=== PATIENT | female | born 1995 | race Caucasian/White ===

== ENCOUNTER 2017-04-02 15:21 | Observation (INO) | payer MEDICAID ==
[2017-04-02 17:41] LABS: Bilirubin NEGATIVE (NEGATIVE); Blood NEGATIVE Ery/ul (0-5); COMPLETE URINE MICROSCOPIC? YES; Collection Type CLEAN CATCH; Glucose NEGATIVE (NEGATIVE); Leukocyte Esterase 1+ (NEGATIVE)
[2017-04-02 17:42] LABS: Bacteria FEW /HPF (NEGATIVE); Epithelial Cells MODERATE /HPF (FEW)
[2017-04-02 17:50] VITALS: PULSE 109
== END 2017-04-02 18:30 | disposition home or self-care (01) ==
LOC: OB 15:21
PROVIDERS: ADMIT Family Medicine; ATTEND Family Medicine
DX: Z34.03 Encounter for supervision of normal first pregnancy, third trimester (principal)
CPT/HCPCS: 59025; 80307; 81000; G0378

== ENCOUNTER 2017-04-16 13:42 | Observation (INO) | payer MEDICAID ==
[2017-04-16 14:30] VITALS: BP 123/80; PULSE 114
--- NOTE | 2017-04-16 14:52 | XRAY ---
Indication: Increased heart rate. Ultrasound biophysical profile study was performed. Comparison: None There is a single viable intrauterine with a heart rate 155 BPM. Four-quadrant SENTHIL is 13.4 cm. Largest amniotic pocket measures 4.6 cm. 2 points given for breathing, movements, tone, and qualitative amniotic fluid volume. Impression: Total biophysical profile score is 8 out of 8.
== END 2017-04-16 16:00 | disposition home or self-care (01) ==
LOC: OB 13:42
PROVIDERS: ADMIT Family Medicine; ATTEND Family Medicine
DX: Z34.03 Encounter for supervision of normal first pregnancy, third trimester (principal)
CPT/HCPCS: 59025; 76818; G0378

== ENCOUNTER 2017-04-18 11:34 | Observation (INO) | payer MEDICAID ==
[2017-04-18 12:11] VITALS: BP 126/84; PULSE 112; O2SAT 100
== END 2017-04-18 14:00 | disposition home or self-care (01) ==
LOC: OB 11:34
PROVIDERS: ADMIT Family Medicine; ATTEND Family Medicine
DX: Z34.03 Encounter for supervision of normal first pregnancy, third trimester (principal)
CPT/HCPCS: 59025; G0378

== ENCOUNTER 2017-05-07 04:38 | Observation (INO) | payer MEDICAID ==
[2017-05-07] MEDS ORDERED: Lactated Ringers 1,000 ML IV ONE (07:16)
[2017-05-07] MEDS ORDERED: OB EPIDURAL NAROPIN/SUFENTANIL IN NACL EPIDURAL PRN (07:16)
[2017-05-07] MEDS ORDERED: Ephedrine Sulfate 50 MG/ML IV PRN (07:16)
[2017-05-07 07:17] LABS: BASOPHIL % 0.1 % (0.0-0.4); Eosinophil % 1.1 % (0.00-5.0); Granulocytes % 55.7 % (36.0-66.0); Lymphocytes % 37.8 % (24.0-44.0); Mean Cell Volume 83.8 fl (78-100); Mean Platelet Volume 11.2 fl (6-9.5); Monocytes % 5.3 % (0.0-12.0); Platelet Count 242 K/mm3 (150-450); Red Blood Count 4.51 M/mm3 (4.1-5.4); White Blood Count 10.5 K/mm3 (4.0-10.5)
[2017-05-07] MEDS ORDERED: Lactated Ringers 1,000 ML IV SCH (07:30)
[2017-05-07] MEDS ORDERED: Zofran 4 MG/2 ML VIAL IV PRN (08:00)
[2017-05-07] MEDS ORDERED: PITOCIN 30 UNITS/ LR 500 ML 500 ML IV SCH (08:00)
[2017-05-07] MEDS ORDERED: XYLOCAINE 1% HCL 20 ML MDV IJ PRN (08:00)
[2017-05-07] MEDS ORDERED: TYLENOL EXTRA STRENGTH 500 MG PO PRN (08:00)
[2017-05-07] MEDS ORDERED: BRETHINE 1 MG/ML SQ PRN (10:15)
[2017-05-07] MEDS ORDERED: Cervidil 10 MG VAG SCH (22:00)
[2017-05-08 07:56] VITALS: BP 122/80; PULSE 70
--- NOTE | 2017-05-08 20:53 | XRAY ---
Exam: OB ultrasound Limited from 05/08/2017. Comparison: OB ultrasound Limited from 04/24/2017. Indication: Amniotic fluid index only. Findings: 4 perpendicular measurements to calculate the amniotic fluid index within each quadrant total 12.4 cm which is within normal limits for this stage of . cardiac activity was identified with a heart rate of 145 bpm. Impression: 1. Current amniotic fluid index measures 12.4 cm which is within normal limits for this near term . Prior SENTHIL on 04/24/2017 measured 14.6 cm.
== END 2017-05-08 09:30 | disposition home or self-care (01) ==
LOC: OB 06:01
PROVIDERS: ADMIT Family Medicine; ATTEND Family Medicine
DX: O61.0 Failed medical induction of labor (principal); Z3A.40 40 weeks gestation of pregnancy
CPT/HCPCS: 36415; 76815; 80307; 85025; G0378; J2590; A9270-GY

== ENCOUNTER 2017-05-10 15:50 | Observation (INO) | payer MEDICAID ==
[2017-05-10 21:34] VITALS: BP 140/94; PULSE 97
== END 2017-05-10 21:00 | disposition home or self-care (01) ==
LOC: UNDOADMOB 15:50 → OB 15:50 → MED SURG 15:50 → UNDODISOB 21:00
PROVIDERS: ADMIT Family Medicine; ATTEND Family Medicine
DX: Z34.03 Encounter for supervision of normal first pregnancy, third trimester (principal)
CPT/HCPCS: 59025; G0378

== ENCOUNTER 2018-08-25 12:23 | Observation (INO) | payer OTHER ==
[2018-08-25 14:20] VITALS: BP 111/73; PULSE 103
== END 2018-08-25 13:35 | disposition home or self-care (01) ==
LOC: OB 12:23
PROVIDERS: ADMIT Family Medicine; ATTEND Family Medicine
DX: Z34.83 Encounter for supervision of other normal pregnancy, third trimester (principal)
CPT/HCPCS: G0378

== ENCOUNTER 2018-08-26 12:42 | Observation (INO) | payer OTHER ==
[2018-08-26 13:16] VITALS: PULSE 97
[2018-08-26 13:46] VITALS: BP 110/72
== END 2018-08-26 14:30 | disposition home or self-care (01) ==
LOC: OB 12:43
PROVIDERS: ADMIT Family Medicine; ATTEND Family Medicine
DX: Z34.83 Encounter for supervision of other normal pregnancy, third trimester (principal)
CPT/HCPCS: G0378

== ENCOUNTER 2018-09-10 04:14 | Inpatient (IN) | payer OTHER ==
[~2018-09-10 04:14] MED LIST: BICITRA 30 ML CUP PO SCH; Lactated Ringers 1,000 ML IV ONE; Lactated Ringers 1,000 ML IV SCH; Pepcid 20 MG VIAL IV SCH; Reglan 10 MG/2 ML IV SCH
[2018-09-10] MEDS ORDERED: CEFAZOLIN 2 GM-D5W BAG** 2 GM/50 ML ML IV ONE (05:23)
[2018-09-10 05:26] LABS: Hematocrit 38.5 % (35-47); Hemoglobin 13.4 gm/dl (12.0-16.0); Mean Cell Volume 84.2 fl (78-100); Mean Corpuscular Hemoglobin 29.3 pg (26-32); Mean Corpuscular Hgb Concent. 34.8 g/dl (32-36); Mean Platelet Volume 10.2 fl (6-9.5); Platelet Count 272 K/mm3 (150-450); Red Blood Count 4.57 M/mm3 (4.1-5.4); Red Cell Distribution Width 13.8 % (11.5-14.0); White Blood Count 8.7 K/mm3 (4.0-10.5)
[2018-09-10 05:45] LABS: INR 0.91 (0.8-3.0); PROTIME 10.6 SECONDS (9.95-12.35)
[2018-09-10 05:46] LABS: Amphetamine,Urine NEGATIVE (NEGATIVE); Appearance HAZY (CLEAR); Bacteria MODERATE /HPF (NEGATIVE); Barbiturate,Urine NEGATIVE (NEGATIVE); Benzodiazepine,Urine NEGATIVE (NEGATIVE); Bilirubin NEGATIVE (NEGATIVE); Blood NEGATIVE Ery/ul (0-5); Cocaine,Urine NEGATIVE (NEGATIVE); Epithelial Cells MANY /HPF (FEW); Glucose NEGATIVE (NEGATIVE); Ketones NEGATIVE (NEGATIVE); Leukocyte Esterase 1+ (NEGATIVE); Methadone,Urine NEGATIVE (NEGATIVE); Nitrite NEGATIVE (NEGATIVE); Opiate,Urine NEGATIVE (NEGATIVE); PCP,Urine NEGATIVE (NEGATIVE); Protein,Urine Dip NEGATIVE (Negative); Specific Gravity 1.015 (1.005-1.025); THC,Urine NEGATIVE (NEGATIVE); Urobilinogen NORMAL mg/dL (0-1)
[2018-09-10 05:48] LABS: PTT 25.8 SECONDS (25.3-37.0)
[2018-09-10] MEDS ORDERED: CEFAZOLIN 2 GM-D5W BAG** 2 GM/50 ML ML IV SCH (06:00)
[2018-09-10 06:13] LABS: ABO TYPING B; Antibody Screen NEGATIVE (NEGATIVE); RH TYPING POSITIVE
[2018-09-10] MEDS ORDERED: Lactated Ringers 1,000 ML IV ONE ×2 (07:06→07:32)
[2018-09-10] MEDS ORDERED: Narcan 0.4 MG/ML IV PRN (08:00)
[2018-09-10] MEDS ORDERED: CLARITIN 10 MG PO PRN (08:00)
[2018-09-10] MEDS ORDERED: BENADRYL 50 MG/ML IV PRN (08:00)
[2018-09-10] MEDS ORDERED: HOLD NARCOTIC ANALGESICS AND SEDATIVES X24 HR MC PRN (08:00)
[2018-09-10] MEDS ORDERED: DEMEROL 50 MG IV PRN (08:00)
[2018-09-10] MEDS ORDERED: PERCOCET TABLET 5/325MG PO PRN (08:00)
[2018-09-10] MEDS ORDERED: MORPHINE SULFATE 2 MG INJ IV PRN (08:00)
[2018-09-10] MEDS ORDERED: Nubain 10 MG/ML IV PRN (08:00)
--- NOTE | 2018-09-10 08:54 | OP ---
SURGERY DATE/TIME: 09/10/2018 0701 PREOPERATIVE DIAGNOSES: 1) History of prior section. 2) Term intrauterine . 3) Desires permanent sterilization. POSTOPERATIVE DIAGNOSES: 1) History of prior section. 2) Term intrauterine . 3) Desires permanent sterilization. PROCEDURES: 1) Repeat low transverse section. 2) Bilateral tubal ligation. SURGEON: Alex Damon M.D. ESTIMATED BLOOD LOSS: 300 cc. IV FLUIDS: 2200 ml of crystalloid. URINE OUTPUT: 400 cc of clear straw-colored urine. ANESTHESIA: Spinal by Domenic Perez CRNA. SPECIMENS: Bilateral fallopian tube segments. Prior to the procedure I discussed risks, benefits and alternatives including risk of bleeding requiring blood transfusion, damage to surrounding structures and risk of infection with repeat section. I also discussed the permanent nature of tubal ligation again with the patient and reviewed failure rate of 1 in 300. She elected to proceed today and had previously signed a consent form in the office on 06/04/2018 which there is a copy on the chart and signed today. DESCRIPTION OF PROCEDURE: She was taken to the OR and underwent spinal anesthesia, prepped and draped in the usual sterile fashion. After adequate level of anesthesia was assessed, a low transverse skin incision was made by knife through the prior area of scar and carried down to the subcutaneous fat to the level of the fascia. The fascia was nicked on both sides of the midline and extended in horizontal fashion using curved Bowers scissors. The superior edge of the fascia was grasped with Seun clamps and the underlying rectus muscles were dissected free. The same was repeated inferiorly. The peritoneal cavity was opened bluntly and extended in horizontal fashion. Bladder flap was then created and reflected over the lower uterine segment. A horizontal uterine incision was made by knife and carried down to the level of the amniotic membranes which were carefully artificially ruptured. A viable female was delivered from the vertex presentation. The cord was clamped and cut and Dr. Gaspar robed/scrubbed at that point to assess the baby. Placenta was manually extracted from the uterus. The uterus was exteriorized. The uterine cavity was sponge curetted clean with lap sponge and then the uterine incision was closed with #1 chromic in a running locked fashion. Good closure and good hemostasis were achieved. Next, the left fallopian tube was identified and carried down to the fimbrial edge to verify, grasped with a Nilesh and electrocautery used to make a window in the mesoappendix. The proximal and distal tube segments were then ligated with 0 chromic tie and the interceding tube segment was dissected free with Metzenbaum scissors. The free edge of the tube was cauterized with electrocautery. The same was repeated on the right. Both tube segments were sent for pathology. The posterior cul-de-sac was wiped free of blood and clot. The uterus was returned to the peritoneal cavity. Lateral gutters were wiped free of blood and clot and the uterine incision was again inspected and noted to have good closure and good hemostasis with no complications. Next, the fascia was closed with 0 Vicryl in a running fashion. Good closure and good hemostasis were achieved. The subcutaneous fat was irrigated with warm, sterile saline and finally the skin layer was closed with 4-0 undyed Vicryl in running subcuticular fashion. Steri-Strips and occlusive dressing were placed over the incision. The patient was transferred to the recovery room in good condition.
[2018-09-10] MEDS ORDERED: Dulcolax 10 MG SUPP PR PRN (09:00)
[2018-09-10] MEDS ORDERED: Mylicon 80MG PO PRN (09:00)
[2018-09-10] MEDS ORDERED: LANSINOH 40 GM TOP PRN (09:00)
[2018-09-10] MEDS ORDERED: MOTRIN 400 MG PO PRN (09:00)
[2018-09-10] MEDS ORDERED: TYLENOL EXTRA STRENGTH 500 MG PO PRN (09:00)
[2018-09-10] MEDS ORDERED: Anucort-HC SUPPOSITORY PR PRN (09:00)
[2018-09-10] MEDS ORDERED: CORTISONE 1% CREAM TP PRN (09:00)
[2018-09-10] MEDS: Dextrose 5%-Lr IV Solution 1000 ML 1,000 ML IV SCH ×2 (09:56→18:06)
[2018-09-10] MEDS: Zofran 4 MG/2 ML VIAL IV PRN ×3 (09:59→17:31)
[2018-09-10 11:25] LABS: Appearance CLEAR (CLEAR); Bacteria FEW /HPF (NEGATIVE); Bilirubin NEGATIVE (NEGATIVE); Blood NEGATIVE Ery/ul (0-5); Epithelial Cells FEW /HPF (FEW); Glucose NEGATIVE (NEGATIVE); Ketones NEGATIVE (NEGATIVE); Leukocyte Esterase TRACE (NEGATIVE); Nitrite NEGATIVE (NEGATIVE); Protein,Urine Dip NEGATIVE (Negative); Urobilinogen NORMAL mg/dL (0-1); WBC 0-2 /HPF (0-5)
[2018-09-10] MEDS ORDERED: TORAdol 30 mg Injection IJ ONE (12:49)
[2018-09-10] MEDS ORDERED: PHENYLEPHRINE HCL IJ ONE (12:49)
[2018-09-10] MEDS ORDERED: Marcaine Mpf 0.5% Vial 30 Ml IJ ONE (12:49)
[2018-09-10] MEDS ORDERED: Pitocin 10 UNITS/ML IV ONE (12:49)
[2018-09-10] MEDS ORDERED: Astramorph-Pf 5 MG/10 ML IJ ONE (14:15)
[2018-09-10] MEDS: Colace 100 MG PO SCH ×2 (14:38→22:30)
[2018-09-10] MEDS: FERREX 150 PO SCH (14:39)
[2018-09-11 05:52] LABS: BASOPHIL % 0.1 % (0.0-0.4); Basophil (Absolute #) 0.01 (0-0.4); Eosinophil % 1.1 % (0.00-5.0); Eosinophil (Absolute #) 0.11 (0-0.5); Granulocyte Absolute (ANC) 6.44 (1.4-6.9); Granulocytes % 64.5 % (36.0-66.0); Hematocrit 34.6 % (35-47); Hemoglobin 11.8 gm/dl (12.0-16.0); Lymphocyte (Absolute #) 2.88 (1.0-4.6); Lymphocytes % 28.9 % (24.0-44.0); Mean Cell Volume 86.7 fl (78-100); Mean Corpuscular Hgb Concent. 34.1 g/dl (32-36); Mean Platelet Volume 10.3 fl (6-9.5); Monocyte (Absolute #) 0.54 (0.0-1.3); Monocytes % 5.4 % (0.0-12.0); Platelet Count 236 K/mm3 (150-450); Red Blood Count 3.99 M/mm3 (4.1-5.4)
[2018-09-11 05:55] LABS: Mean Corpuscular Hemoglobin 29.5 pg (26-32)
[2018-09-11] MEDS ORDERED: Phenergan 25 MG INJ IM PRN (08:00)
[2018-09-11] MEDS ORDERED: DEMEROL 50 MG IV PRN (08:00)
[2018-09-11] MEDS ORDERED: NORCO 5/325 MG PO PRN (08:00)
[2018-09-11] MEDS: Colace 100 MG PO SCH (09:14)
[2018-09-11] MEDS: FERREX 150 PO SCH ×2 (09:14→10:18)
[2018-09-11] MEDS ORDERED: THERAGRAN MULTIVITAMIN PO SCH (10:00)
[2018-09-11] MEDS ORDERED: MULTIVITAMIN LIQUID PO SCH (11:00)
[2018-09-11] MEDS ORDERED: Ferrous Sulfate (IRON) 220 MG/5 ML PO SCH (11:00)
[2018-09-11] MEDS ORDERED: TYLENOL SUSPENSION 160 MG/5 ML PO PRN (11:11)
[2018-09-11] MEDS: HYDROCODONE-ACETAMIN 2.5-108/5 ML SOLUTION PO PRN ×2 (13:43→20:04)
[2018-09-11] MEDS: Motrin 100 MG/5 ML PO PRN ×2 (16:44→22:46)
[2018-09-11] MEDS ORDERED: COLACE Liquid 50 MG/5 ML PO SCH (22:00)
[2018-09-12] MEDS: HYDROCODONE-ACETAMIN 2.5-108/5 ML SOLUTION PO PRN ×2 (03:02→08:41)
[2018-09-12] MEDS: Motrin 100 MG/5 ML PO PRN (05:45)
--- NOTE | 2018-09-12 07:02 | PCM.DS ---
Discharge Summary Date of Admission: 09/10/18 04:14 Admitting Physician: MARIVEL PLAZA Consults: Consults on Case 09/10/18 04:00 Notify Anesthesia Provider ROUTINE Notify Physician OF ADMISSION Primary Care Provider: MARIVEL PLAZA Allergies Allergies No Known Drug Allergies Allergy (Verified 08/26/18 12:56) Hospital Summary - Hospital Course Hospital Course: Pt came in as 22 yo at 39w 1d for repeat . She had some late to care at 21 weeks; date by 21w u/s. She had a history of hyperthyroidism, on PTU , with her first , but apparently she didn't tolerate the PTU well and did not comply with endocrinology appointment or T3/T4 testing during this . Her was uneventful. She did not have much pain until yesterday; took motrin and norco overnight (pt tolerates liquid medicine better than pills). Her bleeding is moderate. Up and out of bed without difficulty. Bottle feeding. Will be discharged to home today with baby. - Vitals & Intake/Output Vital Signs: Vital Signs Temperature 97.3 F 09/12/18 03:00 Pulse Rate 76 09/12/18 03:00 Respiratory Rate 20 09/12/18 03:00 Blood Pressure 124/84 09/12/18 03:00 O2 Sat by Pulse Oximetry 97 09/11/18 05:00 Intake & Output: Intake & Output 09/09/18 09/10/18 09/11/18 09/12/18 11:59 11:59 11:59 11:59 Intake Total 2000 Output Total 2600 Balance -600 Weight 101.151 kg - Lab Result Diagrams: 09/11/18 05:38 Lab Results-Last 24 Hrs: Lab Results-Last 24 Hours 09/10/18 Range/Units 05:00 T3 (LUZ) 133 (80-200) ng/dL Micro Results-Entire Visit: Microbiology 09/10/18 07:16 Urine Culture - Preliminary Urine, Void NO GROWTH TO DATE - Procedures and Test Procedures and Tests throughout Hospitalization: Therapy Orders & Screens 09/10/18 08:02 Standby Routine Comment: Diagnosis: Repeat Section with Bilateral Tubal Ligation Discharge Exam General Appearance: no apparent distress, alert Neurologic Exam: oriented x 3, cooperative Skin Exam: normal color, warm, dry, No rash Eye Exam: eyes nml inspection Ears, Nose, Throat Exam: moist mucous membranes Neck Exam: normal inspection Respiratory Exam: normal breath sounds, lungs clear, No crackles/rales, No rhonchi, No wheezing Cardiovascular Exam: regular rate/rhythm, normal heart sounds, No murmur Gastrointestinal/Abdomen Exam: soft, normal bowel sounds, other (fundus firm under umbilicus. Wound c/d/i), No tenderness, No distention, No mass, No guarding, No rebound Extremity Exam: normal inspection, swelling (trace LE edema bilat) Final Diagnosis/Problem List - Final Discharge Diagnosis/Problem (1) Postcesarean section Current Visit: No Status: Acute Assessment & Plan: Doing very well. Hgb was 11.8 the day after her delivery, so no iron prescribed at home. BP have been uniformly great. F/u with Dr. Daomn in 1 week. - Discharge Disposition: Home, Self-Care Condition: Good Prescriptions: New Hydrocodone/Acetaminophen [Hydrocodone-Acetamin 2.5-108/5 ml Solution] 10 ml PO Q4HPRN PRN #1 bottle MDD 60 mL PRN Reason: Severe Pain Ibuprofen 100 mg/5 ml [Motrin 100 MG/5 ML] 800 mg PO Q6H PRN PRN #1 bottle MDD 2400 mg PRN Reason: Moderate Pain Continue Vits W-Ca,Fe,FA(<1Mg) [] 1 tablet PO DAILY Cannabidiol (Cbd) Extract [Epidiolex] 15 mg PO BID PRN Follow up with: MARIVEL PLAZA [Primary Care Provider] - 1 Week
[2018-09-12 09:22] VITALS: BP 104/69; PULSE 90; O2SAT 98
== END 2018-09-12 10:05 | disposition home or self-care (01) | DRG 833 ==
LOC: OB 04:14
PROVIDERS: ADMIT Family Medicine; ATTEND Family Medicine
DX: O34.211 Maternal care for low transverse scar from previous cesarean delivery (principal); O99.283 Endocrine, nutritional and metabolic diseases complicating pregnancy, third trimester; Z3A.39 39 weeks gestation of pregnancy; Z37.0 Single live birth; Z30.2 Encounter for sterilization
CPT/HCPCS: 36415; 62322; 64488; 76937; 76942; 80307; 81001; 81003; 84436; 84480; 85025; 85027; 85610; 85730; 86850; 86900; 86901; 87086; 94799; J0690; J1885; J2274; J2370; J2405; J2590; L0625; A9270-GY

== ENCOUNTER 2019-09-06 21:16 | Emergency (ER) | payer OTHER ==
[2019-09-06] MEDS ORDERED: TORAdol 30 mg Injection IM ONE (22:03)
[2019-09-06 22:05] LABS: Appearance CLEAR (CLEAR); Bilirubin NEGATIVE (NEGATIVE); Blood SMALL Ery/ul (0-5); Glucose NEGATIVE (NEGATIVE); Ketones NEGATIVE (NEGATIVE); Leukocyte Esterase NEGATIVE (NEGATIVE); Mucus SLIGHT /HPF (NEGATIVE); Nitrite NEGATIVE (NEGATIVE); Protein,Urine Dip NEGATIVE (Negative); Specific Gravity 1.014 (1.005-1.025); Urobilinogen NEGATIVE mg/dL (0-1)
[2019-09-06] MEDS ORDERED: TORAdol 30 mg Injection ONE (22:11)
--- NOTE | 2019-09-06 22:22 | ERPHSYRPT ---
- History of Present Illness Source: patient Exam Limitations: no limitations Patient Subjective Stated Complaint: pt c/o cramps from her period, radiating to her back, abd pain, all worsening. Triage Nursing Assessment: pt c/o menstrual cramps that are worse than usual. Abd pain, radiating to back, nausea, vomited x2. Physician History: abd pain, back pain, menstrual related, NV, 1-2 days. No fever. Timing/Duration: day(s) (2) Activites at Onset: none Quality: sharpness, stabbing Onset Location: RLQ, LLQ, suprapubic Pain Radiation: back Severity of Pain-Max: moderate Severity of Pain-Current: moderate Prior abdominal problems: other (PMS) Sexual intercourse history: non-contributory Modifying Factors: Improves With: nothing Associated Symptoms: nausea, vomiting Allergies/Adverse Reactions: No Known Drug Allergies Allergy (Verified 09/06/19 21:43) Home Medications: Divalproex Sodium [Depakote] 125 mg PO BID 09/06/19 [History] Hx Tetanus, Diphtheria Vaccination/Date Given: Yes Hx Influenza Vaccination/Date Given: No Hx Pneumococcal Vaccination/Date Given: No - Review of Systems Constitutional: No Fever, No Chills Eyes: No Symptoms Ears, Nose, & Throat: No Symptoms Respiratory: No Cough, No Dyspnea Cardiac: No Chest Pain, No Edema, No Syncope Abdominal/Gastrointestinal: Abdominal Pain, Nausea, Vomiting, No Diarrhea Genitourinary Symptoms: No Dysuria Musculoskeletal: Back Pain, No Neck Pain Skin: No Rash Neurological: No Dizziness, No Focal Weakness, No Sensory Changes Psychological: No Symptoms Endocrine: No Symptoms All Other Systems: Reviewed and Negative - Past Medical History Pertinent Past Medical History: Yes Neurological History: No Pertinent History ENT History: No Pertinent History Cardiac History: No Pertinent History Respiratory History: No Pertinent History Endocrine Medical History: Other Musculoskeletal History: No Pertinent History GI Medical History: No Pertinent History History: No Pertinent History Psycho-Social History: No Pertinent History Female Reproductive Disorders: No Pertinent History Other Medical History: sickle cell trait. graves disease - Past Surgical History Past Surgical History: Yes Neuro Surgical History: No Pertinent History Cardiac: No Pertinent History Respiratory: No Pertinent History Gastrointestinal: No Pertinent History Genitourinary: No Pertinent History Musculoskeletal: No Pertinent History Female Surgical History: Section, Tubal Ligation Other Surgical History: x2 - Social History Smoking Status: Current every day smoker How long have you smoked: 10 yrs Exposure to second hand smoke: Yes Drug Use: marijuana Patient Lives Alone: No - Female History Hx Last Menstrual Period: 09/05/19 Hx Now: No - Nursing Vital Signs Nursing Vital Signs: Initial Vital Signs Temperature 98.4 F 09/06/19 21:33 Pulse Rate 107 H 09/06/19 21:33 Respiratory Rate 18 09/06/19 21:33 Blood Pressure 133/97 09/06/19 21:33 O2 Sat by Pulse Oximetry 99 09/06/19 21:33 Pain Scale Pain Intensity 7 - Physical Exam General Appearance: no apparent distress, alert Eye Exam: PERRL/EOMI, eyes nml inspection Ears, Nose, Throat Exam: normal ENT inspection, TMs normal, pharynx normal, moist mucous membranes Neck Exam: normal inspection, non-tender, supple, full range of motion Respiratory Exam: normal breath sounds, lungs clear, No respiratory distress Cardiovascular Exam: regular rate/rhythm, normal heart sounds, normal peripheral pulses Gastrointestinal/Abdomen Exam: soft, tenderness, No mass, No guarding, No rebound Pelvic Exam: not done Rectal Exam: deferred Back Exam: normal inspection, normal range of motion, muscle spasm, No CVA tenderness, No vertebral tenderness Extremity Exam: normal inspection, normal range of motion, pelvis stable Neurologic Exam: alert, oriented x 3, cooperative, blood bank specialist II-XII nml as tested, normal mood/affect, sensation nml, No motor deficits Skin Exam: normal color, warm, dry Lymphatic Exam: No adenopathy SpO2: 99 - Course Nursing assessment & vital signs reviewed: Yes Ordered Tests: Active Orders 24 hr Category Date Time Status HCG,QUALITATIVE URINE Stat Lab 09/06/19 21:57 Completed UA W/RFX UR CULTURE Stat Lab 09/06/19 21:57 Completed Medication Summary Discontinued Medications Generic Name Dose Route Start Last Admin Trade Name Freq PRN Reason Stop Dose Admin Ketorolac Tromethamine 60 mg 09/06/19 22:03 Toradol 30 Mg Injection IM 09/06/19 22:04 STAT ONE Ketorolac Tromethamine Confirm 09/06/19 22:11 Toradol 30 Mg Injection Administered 09/06/19 22:12 Dose 60 mg .ROUTE .[place] [facility] Lab/Rad Data: Laboratory Results 09/06/19 09/06/19 Range/Units 21:57 21:57 Urine Color YELLOW (YELLOW) Urine Appearance CLEAR (CLEAR) Urine pH 6.0 (5-6) Ur Specific [place] 1.014 (1.005-1.025) Urine Protein NEGATIVE (Negative) Urine Ketones NEGATIVE (NEGATIVE) Urine Blood SMALL (0-5) Beck/ul Urine Nitrite NEGATIVE (NEGATIVE) Urine Bilirubin NEGATIVE (NEGATIVE) Urine Urobilinogen NEGATIVE (0-1) mg/dL Ur Leukocyte Esterase NEGATIVE (NEGATIVE) Urine WBC (Auto) NONE (0-5) /HPF Urine RBC (Auto) NONE (0-2) /HPF U Epithel Cells (Auto) NONE (FEW) /HPF Urine Bacteria (Auto) NONE (NEGATIVE) /HPF Urine Mucus (Auto) SLIGHT (NEGATIVE) /HPF Urine Culture Reflexed NO (NO) Urine Glucose NEGATIVE (NEGATIVE) mg/dL Urine HCG, Qual NEGATIVE (Negative) - Progress Progress: improved Air Movement: good Progress Note: 09/06/19 22:17 PMS related. Normal pap x last 2 years. No vagina issues. UA neg. toradol IM. Rx Ponstel Advised f/u with DELIVERY DEPARTMENT SUPERVISOR. Blood Culture(s) Obtained: No Antibiotics given: No Counseled pt/family regarding: lab results, diagnosis, need for follow-up - Departure Departure Disposition: Home Clinical Impression: Menstrual cramps Condition: Stable Critical Care Time: No Referrals: MARIVEL PLAZA [Primary Care Provider] - Instructions: Menstrual Cramps (DC) Additional Instructions: Rest. Take meds as prescribed. Try Midol as well. Follow up with DELIVERY DEPARTMENT SUPERVISOR laura. Return to ER if worse. Forms: Work/School Release Form Prescriptions: Mefenamic Acid 250 mg PO Q6H PRN PRN 3 Days #10 capsule PRN Reason: Pain
[2019-09-06 23:02] VITALS: BP 123/89; PULSE 96; O2SAT 98
== END 2019-09-06 23:02 | disposition home or self-care (01) ==
LOC: ED 21:16
DX: N94.6 Dysmenorrhea, unspecified (principal)
CPT/HCPCS: 81001; 84703; 96372; 99284; J1885

== ENCOUNTER 2020-06-09 12:06 | Emergency (ER) | payer OTHER ==
[2020-06-09] MEDS ORDERED: CLINDAMYCIN-D5W 900 MG/50 ML*** 900 MG/50 ML BAG IV STA (12:24)
[2020-06-09] MEDS ORDERED: Zofran 4 MG/2 ML VIAL IV ONE (12:24)
[2020-06-09] MEDS ORDERED: MORPHINE SULFATE 10 MG/ML IV ONE (12:24)
[2020-06-09] MEDS ORDERED: TORAdol 30 mg Injection IV ONE (12:26)
[2020-06-09] MEDS ORDERED: Zofran 4 MG/2 ML VIAL ONE (12:33)
[2020-06-09] MEDS ORDERED: TORAdol 30 mg Injection ONE (12:33)
[2020-06-09] MEDS ORDERED: CLINDAMYCIN-D5W 900 MG/50 ML*** 900 MG/50 ML BAG IV ONE (12:34)
[2020-06-09] MEDS ORDERED: MORPHINE SULFATE 10 MG/ML ONE (12:34)
[2020-06-09] MEDS ORDERED: Inderal 20 MG PO ONE (12:57)
[2020-06-09 13:06] VITALS: BP 148/108
--- NOTE | 2020-06-09 13:26 | ERPHSYRPT ---
- History of Present Illness Time Seen by Provider: 06/09/20 12:21 Source: patient Exam Limitations: no limitations Patient Subjective Stated Complaint: toothache Triage Nursing Assessment: pt to ED c/o tooth pain on R side upper and lower x 4 days. states swelling has increased and she is unable to eat. reports having dentist appt scheduled for this saturday but could not hold out. rates 10/10 pain, tearfull on assessment, tachycardic. has taken OTC pain meds at home with no relief. no diff breathing or swallowing noted. throat not swollen. Physician History: 24 years old female with history of hypothyroidism on methimazole/propranolol, not taking these meds for the last 2 days presented in the ER with chief complaint of right upper toothache/jaw swelling for the last 4 days. Reports it started gradually and progressively worsening pain and swelling, rates 10/10 sharp nature pain, aggravated with movement such making swallowing solid food difficult but denies any difficulty breathing or taking liquids. She has been taking [id number] pain medication with no significant relief. Denies any fever or chills. Since yesterday has been having swelling of right side cheek. Does have an appointment with dentist upcoming Saturday. No sore throat. Patient is tachycardic on presentation with heart rate in 130s but no fever or chills. Timing/Duration: gradual onset, days (4) Severity: severe ENT Location: dental Prearrival Treatment: over the counter meds Modifying Factors: Improves With: activity Associated Symptoms: facial pain/swelling, jaw pain, poor solids intake, sinus infection, tooth pain, difficulty swallowing, No fever, No drooling, No poor fluid intake Allergies/Adverse Reactions: No Known Drug Allergies Allergy (Verified 06/09/20 12:17) Home Medications: Methimazole 10 mg PO DAILY 06/09/20 [History] Propranolol HCl 20 mg PO DAILY 06/09/20 [History] Hx Tetanus, Diphtheria Vaccination/Date Given: Yes Hx Influenza Vaccination/Date Given: Yes Hx Pneumococcal Vaccination/Date Given: No Travel Risk - International Travel Have you traveled outside of the country in past 3 weeks: No - Coronavirus Screening Are you exhibiting any of the following symptoms?: No Close contact with a COVID-19 positive Pt in past 14-21 Days: No - Review of Systems Constitutional: No Symptoms Eyes: No Symptoms Ears, Nose, & Throat: Mouth Swelling, Painful Swallowing Respiratory: No Symptoms Cardiac: No Symptoms Abdominal/Gastrointestinal: No Symptoms Genitourinary Symptoms: No Symptoms Neurological: No Symptoms Psychological: No Symptoms Endocrine: No Symptoms Hematologic/Lymphatic: No Symptoms Immunological/Allergic: No Symptoms - Past Medical History Pertinent Past Medical History: Yes Neurological History: No Pertinent History ENT History: No Pertinent History Cardiac History: No Pertinent History Respiratory History: No Pertinent History Endocrine Medical History: Other Musculoskeletal History: No Pertinent History GI Medical History: No Pertinent History History: No Pertinent History Psycho-Social History: No Pertinent History Female Reproductive Disorders: No Pertinent History Other Medical History: sickle cell trait. graves disease - Past Surgical History Past Surgical History: Yes Neuro Surgical History: No Pertinent History Cardiac: No Pertinent History Respiratory: No Pertinent History Gastrointestinal: No Pertinent History Genitourinary: No Pertinent History Musculoskeletal: No Pertinent History Female Surgical History: Section, Tubal Ligation Other Surgical History: x2 - Social History Smoking Status: Current every day smoker How long have you smoked: 10 yrs Exposure to second hand smoke: Yes Drug Use: marijuana Patient Lives Alone: No - Female History Hx Now: No - Nursing Vital Signs Nursing Vital Signs: Initial Vital Signs Temperature 98.7 F 06/09/20 12:10 Pulse Rate 126 H 06/09/20 12:10 Respiratory Rate 20 06/09/20 12:10 Blood Pressure 136/101 06/09/20 12:10 O2 Sat by Pulse Oximetry 96 06/09/20 12:10 Pain Scale Pain Intensity 0 - Physical Exam General Appearance: no apparent distress, alert, anxiety Eye Exam: bilateral eye: normal inspection, PERRL, EOMI Ear Exam: bilateral ear: auricle normal, canal normal, TM normal Nasal Exam: normal inspection Throat Exam: normal, pharynx normal, dental tenderness (Right upper jaw molar and premolar gum swelling. Tenderness right maxilla. No fluctuation the gumline.), No uvula swelling Neck Exam: normal inspection, supple, full range of motion Cardiovascular/Respiratory Exam: normal breath sounds, tachycardia Abdominal Exam: non-tender, soft, no organomegaly Neurologic Exam: alert, oriented x 3, cooperative, circus hand II-XII nml as tested (Hello) Skin Exam: normal color SpO2 Interpretation: normal SpO2: 96 O2 Delivery: Room Air (Ri) - Course Nursing assessment & vital signs reviewed: Yes Ordered Tests: Active Orders 24 hr Category Date Time Status IV Insertion STAT Care 06/09/20 12:24 Completed BLOOD CULTURE Stat Lab 06/09/20 13:00 Received Medication Summary Discontinued Medications Generic Name Dose Route Start Last Admin Trade Name Emilie PRN Reason Stop Dose Admin Clindamycin HCl/Dextrose 900 mg in 50 mls @ 100 mls/hr 06/09/20 12:24 06/09/20 12:55 Clindamycin-D5w 900 Mg/50 Ml IV 06/09/20 12:53 100 ml/hr STAT STA 100 mls/hr Administration Clindamycin HCl/Dextrose Confirm 06/09/20 12:34 Clindamycin-D5w 900 Mg/50 Ml Administered 06/09/20 12:35 Dose 900 mg in 50 mls @ ud IV .STK-MED ONE Ketorolac Tromethamine 30 mg 06/09/20 12:26 06/09/20 12:36 Toradol 30 Mg Injection IV 06/09/20 12:27 30 mg STAT ONE Administration Ketorolac Tromethamine Confirm 06/09/20 12:33 Toradol 30 Mg Injection Administered 06/09/20 12:34 Dose 30 mg .ROUTE .STK-MED ONE Morphine Sulfate 6 mg 06/09/20 12:24 06/09/20 12:36 Morphine Sulfate 10 Mg/Ml IV 06/09/20 12:25 6 mg STAT ONE Administration Morphine Sulfate Confirm 06/09/20 12:34 Morphine Sulfate 10 Mg/Ml Administered 06/09/20 12:35 Dose 10 mg .ROUTE .STK-MED ONE Ondansetron HCl 4 mg 06/09/20 12:24 06/09/20 12:36 Zofran 4 Mg/2 Ml Vial IV 06/09/20 12:25 4 mg STAT ONE Administration Ondansetron HCl Confirm 06/09/20 12:33 Zofran 4 Mg/2 Ml Vial Administered 06/09/20 12:34 Dose 4 mg .ROUTE .STK-MED ONE Propranolol HCl 20 mg 06/09/20 12:57 06/09/20 13:03 Inderal 20 Mg PO 06/09/20 12:58 20 mg STAT ONE Administration - Progress Progress: improved, pain not gone completely, re-examined Progress Note: 06/09/20 14:47 She has right dental abscess. She is given clindamycin IV first dose in here and will continue to go home. She is also given pain medication, on reevaluation feeling much better. Patient is tachycardic but no fever or chills. She does not seem septic but her tachycardia is more from her not taking propranolol and methimazole for the last couple of days. She is given a dose of propanolol in here and is advised to be compliant with medications. Di scussed signs symptoms of worsening needing return to ER which she seems understanding. She does have follow-up appointment with her dentist on Saturday which she is advised to keep. Counseled pt/family regarding: diagnosis, need for follow-up - Departure Departure Disposition: Home Clinical Impression: Abscess, dental Condition: Stable Critical Care Time: No Referrals: MARIVEL SCANLON [Primary Care Provider] - Follow Up with PCP/3 days Instructions: Tooth Abscess (DC) Additional Instructions: Keep appointment with your dentist on coming Saturday. Take pain medications as needed. Continue with antibiotics. Return to ER for worsening pain swelling, difficulty breathing swallowing or if develop fever chills. Teen medication propranolol/methimazole regularly. Prescriptions: Clindamycin HCl 150 mg [Cleocin 150 mg Capsule] 2 cap PO QID #56 capsule Hydrocodone/Acetaminophen [[place]bell 7.5-325 Tablet] 1 each PO Q4-6HPRN PRN 3 Days #12 tablet MDD 4 PRN Reason: Pain
[2020-06-09 13:42] VITALS: PULSE 106
[2020-06-09 14:00] VITALS: O2SAT 96
[2020-06-09] MEDS ORDERED: CLEOCIN 150 MG CAPSULE ONE (14:47)
== END 2020-06-09 13:52 | disposition home or self-care (01) ==
LOC: ED 12:06
DX: K04.7 Periapical abscess without sinus (principal)
CPT/HCPCS: 36000; 36415; 87040; 96365; 96374; 96375; 99284; J1885; J2270; J2405; A9270-GY

== ENCOUNTER 2020-12-23 15:21 | Emergency (ER) | payer OTHER ==
[2020-12-23] MEDS ORDERED: Augmentin 875-125 Tablet ONE (16:42)
[2020-12-23] MEDS ORDERED: TORAdol 30 mg Injection ONE (16:42)
[2020-12-23] MEDS: Augmentin 875-125 Tablet PO ONE (16:45)
[2020-12-23] MEDS: TORAdol 30 mg Injection IM ONE (16:45)
--- NOTE | 2020-12-23 16:46 | ERPHSYRPT ---
- History of Present Illness Time Seen by Provider: 12/23/20 15:24 Source: patient Exam Limitations: no limitations Patient Subjective Stated Complaint: Pt states she has been having pain in left top front tooth x2-3 days. Says she had 3 teeth extracted in June of 2020 due to abscess and this feels similar. Denies fever. Triage Nursing Assessment: Pt skin pink, warm, dry. Multiple teeth missing. Areas of decay noted to teeth in painful areas. No gross swelling noted to gums. Physician History: 25 years old female with history of bad dentition with periodontal disease, tooth abscess in the past presented in the ER with pain and swelling left upper anterior gum area gradually worsening for the last 2 to 3 days, moderate intensity sharp nature with associated facial swelling. Reports having similar symptoms in the past which led to full-blown abscess development. Denies fever or chills. Patient is tachycardic on presentation but does have history of Graves' disease not taking any medications currently for the last 2 months and her heart rate is chronically high. Timing/Duration: gradual onset, days (2) Severity: moderate ENT Location: dental Prearrival Treatment: over the counter meds Associated Symptoms: facial pain/swelling, jaw pain, tooth pain, difficulty swallowing Allergies/Adverse Reactions: No Known Drug Allergies Allergy (Verified 12/23/20 15:50) Hx Tetanus, Diphtheria Vaccination/Date Given: Yes (08/2018) Hx Influenza Vaccination/Date Given: No Hx Pneumococcal Vaccination/Date Given: No Travel Risk - International Travel Have you traveled outside of the country in past 3 weeks: No - Coronavirus Screening Are you exhibiting any of the following symptoms?: No Close contact with a COVID-19 positive Pt in past 14-21 Days: No - Vaccine Status Have you recieved a Covid-19 vaccination: No - Review of Systems Constitutional: No Symptoms Eyes: No Symptoms Ears, Nose, & Throat: Mouth Pain Respiratory: No Symptoms Cardiac: Palpitations Abdominal/Gastrointestinal: No Symptoms Genitourinary Symptoms: No Symptoms Musculoskeletal: No Symptoms Neurological: No Symptoms Psychological: No Symptoms Endocrine: No Symptoms Hematologic/Lymphatic: No Symptoms Immunological/Allergic: No Symptoms - Past Medical History Pertinent Past Medical History: Yes Neurological History: No Pertinent History ENT History: No Pertinent History Cardiac History: No Pertinent History Respiratory History: No Pertinent History Endocrine Medical History: Hyperthyroidism, Other Musculoskeletal History: No Pertinent History GI Medical History: No Pertinent History History: No Pertinent History Psycho-Social History: Depression Female Reproductive Disorders: No Pertinent History Other Medical History: sickle cell trait. graves disease - Past Surgical History Past Surgical History: Yes Neuro Surgical History: No Pertinent History Cardiac: No Pertinent History Respiratory: No Pertinent History Gastrointestinal: No Pertinent History Genitourinary: No Pertinent History Musculoskeletal: No Pertinent History Female Surgical History: Section, Tubal Ligation Other Surgical History: x2 - Social History Smoking Status: Current every day smoker How long have you smoked: 10 yrs Exposure to second hand smoke: Yes Drug Use: marijuana Patient Lives Alone: No - Female History Hx Last Menstrual Period: 11/26/20 Hx Now: No - Nursing Vital Signs Nursing Vital Signs: Initial Vital Signs Temperature 99.4 F 12/23/20 15:48 Pulse Rate 133 H 12/23/20 15:48 Respiratory Rate 18 12/23/20 15:48 Blood Pressure 147/93 12/23/20 15:48 O2 Sat by Pulse Oximetry 98 12/23/20 15:48 Pain Scale Pain Intensity 3 - Physical Exam General Appearance: no apparent distress, alert Eye Exam: bilateral eye: normal inspection, PERRL, EOMI Ear Exam: bilateral ear: auricle normal, canal normal, TM normal Nasal Exam: normal inspection, sinus tenderness (Left maxillary. Multiple broken teeth with periodontal disease, swollen anterior canine gingiva, tender to touch. No fluctuation.) Neck Exam: normal inspection, non-tender, supple, full range of motion Cardiovascular/Respiratory Exam: normal breath sounds, tachycardia Neurologic Exam: alert, oriented x 3, cooperative, nailer hand II-XII nml as tested Skin Exam: normal color SpO2 Interpretation: normal SpO2: 99 O2 Delivery: Room Air Ordered Tests: Medication Summary Discontinued Medications Generic Name Dose Route Start Last Admin Trade Name Freq PRN Reason Stop Dose Admin Amoxicillin/Clavulanate Potassium 875 mg 12/23/20 16:36 12/23/20 16:45 Augmentin 875-125 Tablet PO 12/23/20 16:37 875 mg STAT ONE Administration Amoxicillin/Clavulanate Potassium Confirm 12/23/20 16:42 Augmentin 875-125 Tablet Administered 12/23/20 16:43 Dose 875 mg .ROUTE .STK-MED ONE Ketorolac Tromethamine 30 mg 12/23/20 16:38 12/23/20 16:45 Toradol 30 Mg Injection IM 12/23/20 16:39 30 mg STAT ONE Administration Ketorolac Tromethamine Confirm 12/23/20 16:42 Toradol 30 Mg Injection Administered 12/23/20 16:43 Dose 30 mg .ROUTE .STK-MED ONE - Progress Progress: pain not gone completely Progress Note: 12/23/20 16:42 Started on Augmentin and given symptomatic treatment for pain. Recommended outpatient follow-up with her dentist in [place] where she has been doing follow-up in the past. Discussed signs symptoms of worsening needing return to ER which she seems understanding. Counseled pt/family regarding: diagnosis, need for follow-up - Departure Departure Disposition: Home Clinical Impression: Dental infection Condition: Stable Critical Care Time: No Referrals: MARIVEL SCANLON [Primary Care Provider] - Follow Up with PCP/3 days Instructions: Tooth Abscess (DC) Additional Instructions: Follow-up with your dentist for reevaluation. For worsening pain, swelling, fever chills etc. Prescriptions: Amoxicillin/Potassium Clav [Augmentin 875-125 Tablet] 875 mg PO BID 7 Days #14 tablet Diclofenac Sodium 75 mg PO BID PRN 10 Days #20 tablet.dr BERRY Reason: Pain
[2020-12-23 17:10] VITALS: BP 138/91; PULSE 130
[2020-12-23 21:58] VITALS: O2SAT 99
== END 2020-12-23 17:10 | disposition home or self-care (01) ==
LOC: ED 15:21
DX: K04.7 Periapical abscess without sinus (principal)
CPT/HCPCS: 96372; 99284; J1885; A9270-GY

== ENCOUNTER 2021-09-20 11:25 | Emergency (ER) | payer OTHER ==
[2021-09-20] MEDS ORDERED: XYLOCAINE 1% HCL 20 ML MDV IJ ONE (11:26)
[2021-09-20 11:35] VITALS: BP 152/111; PULSE 140
[2021-09-20] MEDS ORDERED: TORAdol 30 mg Injection ONE (11:45)
[2021-09-20] MEDS ORDERED: Rocephin 1000 MG INJ ONE (11:45)
[2021-09-20] MEDS: TORAdol 30 mg Injection IM ONE (11:50)
[2021-09-20] MEDS: Rocephin 1000 MG INJ IM ONE (11:51)
--- NOTE | 2021-09-20 11:51 | ERPHSYRPT ---
- History of Present Illness Source: patient Exam Limitations: no limitations Patient Subjective Stated Complaint: pt here for toothache for 3 days now Triage Nursing Assessment: pt has mulit dental caries and broken teeth . pt has sores to mouth and face she states from past drug use Physician History: Dental pain x 3 days. Pt has extremely poor dentition due to previous drug use w multiple eroded/missing teeth. She denies fever/trauma. Timing/Duration: days (3 days) Severity: moderate ENT Location: mouth Prearrival Treatment: over the counter meds Modifying Factors: Improves With: other (Chewing) Associated Symptoms: facial pain/swelling, jaw pain, tooth pain, No ear pain (R), No ear pain (L), No cough, No fever, No chills, No change in hearing, No dizziness, No drooling, No ear drainage, No headache, No hearing loss, No malaise, No motion sickness, No nasal congestion/drainage, No epistaxis, No nasal foreign body, No neck pain, No poor fluid intake, No poor solids intake, No ringing of ears, No swollen glands, No sinus infection, No sore throat, No difficulty swallowing, No voice change Allergies/Adverse Reactions: No Known Drug Allergies Allergy (Verified 09/20/21 11:36) Hx Tetanus, Diphtheria Vaccination/Date Given: Yes (08/2018) Hx Influenza Vaccination/Date Given: No Hx Pneumococcal Vaccination/Date Given: No Immunizations Up to Date: Yes Travel Risk - International Travel Have you traveled outside of the country in past 3 weeks: No - Coronavirus Screening Are you exhibiting any of the following symptoms?: No Close contact with a COVID-19 positive Pt in past 14-21 Days: No - Vaccine Status Have you recieved a Covid-19 vaccination: No - Review of Systems Constitutional: No Symptoms Eyes: No Symptoms Ears, Nose, & Throat: Mouth Pain, Mouth Swelling, Loose Teeth Respiratory: No Symptoms Cardiac: No Symptoms Abdominal/Gastrointestinal: No Symptoms Genitourinary Symptoms: No Symptoms Musculoskeletal: No Symptoms Skin: No Symptoms Neurological: No Symptoms Psychological: No Symptoms, Drug Abuse Endocrine: No Symptoms Hematologic/Lymphatic: No Symptoms Immunological/Allergic: No Symptoms - Past Medical History Pertinent Past Medical History: Yes Neurological History: No Pertinent History ENT History: No Pertinent History Cardiac History: No Pertinent History Respiratory History: No Pertinent History Endocrine Medical History: Hyperthyroidism, Other Musculoskeletal History: No Pertinent History GI Medical History: No Pertinent History History: No Pertinent History Psycho-Social History: Depression Female Reproductive Disorders: No Pertinent History Other Medical History: sickle cell trait. graves disease - Past Surgical History Past Surgical History: Yes Neuro Surgical History: No Pertinent History Cardiac: No Pertinent History Respiratory: No Pertinent History Gastrointestinal: No Pertinent History Genitourinary: No Pertinent History Musculoskeletal: No Pertinent History Female Surgical History: Section, Tubal Ligation Other Surgical History: x2 - Social History Smoking Status: Current every day smoker How long have you smoked: 10 yrs Exposure to second hand smoke: Yes Drug Use: marijuana Patient Lives Alone: No Significant Family History: no pertinent family hx - Female History Hx Last Menstrual Period: aug Hx Now: No - Nursing Vital Signs Nursing Vital Signs: Initial Vital Signs Temperature 97.2 F 09/20/21 11:30 Pulse Rate 140 H 09/20/21 11:30 Respiratory Rate 18 09/20/21 11:30 Blood Pressure 152/111 09/20/21 11:30 Pain Scale Pain Intensity 8 Hypertensive/Tachycardic - Physical Exam General Appearance: no apparent distress Eye Exam: bilateral eye: normal inspection, PERRL, EOMI Ear Exam: bilateral ear: auricle normal, canal normal, TM normal Nasal Exam: normal inspection Throat Exam: pharynx normal, dental tenderness (Multiple missing/eroded teeth w multiple teeth TTP), moist mucus membranes, No excessive drooling, No foreign body, No mandibular swelling, No maxillary swelling Neck Exam: normal inspection, non-tender, supple, full range of motion, trachea midline Cardiovascular/Respiratory Exam: normal breath sounds, tachycardia Abdominal Exam: non-tender, soft Neurologic Exam: alert, oriented x 3, cooperative, hereditary cancer program coordinator II-XII nml as tested, normal mood/affect, nml cerebellar function, nml station & gait, sensation nml, No motor deficits, No sensory deficit Skin Exam: normal color, other (Simi-oral vesicular excoriated rash) - Course Nursing assessment & vital signs reviewed: Yes Ordered Tests: Medication Summary Discontinued Medications Generic Name Dose Route Start Last Admin Trade Name Freq PRN Reason Stop Dose Admin Ceftriaxone Sodium 1,000 mg 09/20/21 11:45 09/20/21 11:51 Ceftriaxone Sodium 1000 Mg Inj Vial IM 09/20/21 11:46 1,000 mg STAT ONE Administration Ceftriaxone Sodium Confirm 09/20/21 11:45 Ceftriaxone Sodium 1000 Mg Inj Vial Administered 09/20/21 11:46 Dose 1,000 mg .ROUTE .STK-MED ONE Ketorolac Tromethamine 60 mg 09/20/21 11:46 09/20/21 11:50 Ketorolac Tromethamine 30 Mg/Ml Inj IM 09/20/21 11:47 60 mg STAT ONE Administration Ketorolac Tromethamine Confirm 09/20/21 11:45 Ketorolac Tromethamine 30 Mg/Ml Inj Administered 09/20/21 11:46 Dose 60 mg .ROUTE .STK-MED ONE - Progress Progress: improved Progress Note: 09/20/21 11:52 1gm IM Rocephin/60mg IM Toradol 09/20/21 12:03 Pt states that she has an appointment at Noon 09/21/21 w dentist 09/20/21 12:03 Pt states that she is always tachycardic due to Graves disease 09/20/21 13:23 Pt is supposed to be taking a BB but has not taken it for several days. Pt advised to resume BB GERRY. Counseled pt/family regarding: diagnosis, need for follow-up - Departure Departure Disposition: Home Clinical Impression: Pain due to dental caries, Perioral dermatitis Condition: Stable Critical Care Time: No Referrals: MARIVEL DILL [Primary Care Provider] - Follow up/PCP as directed Instructions: Tooth Abscess (DC), Tooth Decay, Adult (DC), Dental Pain (DC) Additional Instructions: Dentist GERRY Lodine as needed for pain Amoxil twice a day Resume your Beta-Marla Follow up with your family MD about blood pressure Prescriptions: Amoxicillin 875 mg PO BID #20 tablet Mupirocin [Bactroban OINTMENT] 22 gm TP BID PRN #1 PRN Reason: Rash Etodolac 400 mg [Lodine 400 mg] 400 mg PO BID PRN PRN #14 tablet PRN Reason: Pain
== END 2021-09-20 12:14 | disposition home or self-care (01) ==
LOC: ED 11:25
DX: K02.9 Dental caries, unspecified (principal); L71.0 Perioral dermatitis; E05.00 Thyrotoxicosis with diffuse goiter without thyrotoxic crisis or storm; R00.0 Tachycardia, unspecified; Z72.0 Tobacco use
CPT/HCPCS: 96372; 99283; J0696; J1885

== ENCOUNTER 2023-01-03 10:53 | Emergency (ER) | payer OTHER ==
[2023-01-03 11:27] LABS: Absolute Neutrophil Ct (ANC) 2.85 x10^3/uL (1.4-6.9); BASOPHIL % 0.2 % (0.0-0.4); Basophil (Absolute #) 0.01 x10^3/uL (0-0.4); Eosinophil % 1.3 % (0.00-5.0); Eosinophil (Absolute #) 0.08 x10^3/uL (0-0.5); Hemoglobin 13.1 g/dL (12.0-16.0); Lymphocyte (Absolute #) 2.75 x10^3/uL (1.0-4.6); Lymphocytes % 45.2 % (24.0-44.0); Mean Cell Volume 79.4 fL (78-100); Mean Corpuscular Hemoglobin 26.7 pg (26-32); Mean Corpuscular Hgb Concent. 33.6 g/dL (32-36); Mean Platelet Volume 10.1 fL (7.5-11.0); Monocyte (Absolute #) 0.39 x10^3/uL (0.0-1.3); Monocytes % 6.4 % (0.0-12.0); Neutrophil % 46.9 % (36.0-66.0); Platelet Count 208 x10^3/uL (150-450); Red Blood Count 4.91 x10^6/uL (4.1-5.4); White Blood Count 6.1 x10^3/uL (4.0-10.5)
[2023-01-03 11:41] LABS: ACETAMINOPHEN < 10 ug/ml (10-30); ALBUMIN 4.1 g/dL (3.5-5.0); ALKALINE PHOSPHATASE 95 U/L (38-126); ANION GAP 12.8 MEQ/L (5-15); BLOOD UREA NITROGEN 12 mg/dL (7-17); CHLORIDE 107 mmol/L (98-107); Calcium 8.8 mg/dL (8.4-10.2); Carbon Dioxide 24 mmol/L (22-30); Creatinine 1 0.32 mg/dL (0.52-1.04); EST GLOMERULAR FILTRATION RATE > 60.0 ML/MIN; ETHYL ALCOHOL < 10 mg/dL (0-10); Glucose 109 mg/dL (74-106); Potassium 3.4 mmol/L (3.5-5.1); SALICYLATE < 1.0 mg/dL (2-20); SGOT/AST 23 U/L (14-36); SGPT/ALT 23 U/L (0-35); SODIUM 140 mmol/L (137-145); Total Protein 7.4 g/dL (6.3-8.2)
[2023-01-03 11:45] LABS: HCG SERUM TEST NEGATIVE (NEGATIVE)
--- NOTE | 2023-01-03 12:20 | ERPHSYRPT ---
- History of Present Illness Time Seen by Provider: 01/03/23 11:14 Source: patient, police Exam Limitations: no limitations Patient Subjective Stated Complaint: PT states "I want to , I have lost the will to live. I want to walk in front of a car or train." Triage Nursing Assessment: Pt presented alert and oriented X 3, skin pwd. Pt amublates with an upright steady gait, able to speak in clear full sentences. PT was brought in by pd and they stated that pt was willing to go, when speaking with the pt states she was not sure she would wan to go. Physician History: 27 years old female with history of schizoaffective disorder, borderline personality disorder, anxiety, depression, noncompliant with medications p resented to the ER with PD after she called 911 to express her thoughts of suicide with a specific plan. Patient reports having thoughts of jumping in front of a car/train or choking herself with milling/polishing operator wire. Patient reports she has lost hope in her life and does not think things will get better in the near future. She does not think it is worth living like this but wants some help to deal with her depression symptoms. Patient is willing to go to treatment facility. Timing/Duration: day(s), gradual onset, worse Severity of Symptoms-Max: severe Severity of Symptoms-Current: severe Suicidal thoughts: specific plan Associated Symptoms: depressed, frustrated Previous symptoms: different symptoms Allergies/Adverse Reactions: lactose Adverse Reaction (Intermediate, Verified 01/03/23 11:06) belly issues/diarrhea Home Medications: No Reportable Medications [No Reported Medications] 01/03/23 [History] Hx Tetanus, Diphtheria Vaccination/Date Given: Yes (08/2018) Hx Influenza Vaccination/Date Given: No Hx Pneumococcal Vaccination/Date Given: No Immunizations Up to Date: Yes Travel Risk - International Travel Have you traveled outside of the country in past 3 weeks: No - Coronavirus Screening Are you exhibiting any of the following symptoms?: No Close contact with a COVID-19 positive Pt in past 14-21 Days: No - Vaccine Status Have you recieved a Covid-19 vaccination: No - Past Medical History Pertinent Past Medical History: Yes Neurological History: Migraines ENT History: No Pertinent History Cardiac History: No Pertinent History Respiratory History: No Pertinent History Endocrine Medical History: Hyperthyroidism Musculoskeletal History: No Pertinent History GI Medical History: No Pertinent History History: No Pertinent History Psycho-Social History: Depression Female Reproductive Disorders: No Pertinent History Other Medical History: NOT VACCINATED FOR COVID - Past Surgical History Past Surgical History: Yes Neuro Surgical History: No Pertinent History Cardiac: No Pertinent History Respiratory: No Pertinent History Gastrointestinal: No Pertinent History Genitourinary: No Pertinent History Musculoskeletal: No Pertinent History Female Surgical History: Tubal Ligation, Section Other Surgical History: x2 - Social History Smoking Status: Current every day smoker How long have you smoked: 10 yrs Exposure to second hand smoke: Yes Drug Use: marijuana Patient Lives Alone: No Significant Family History: no pertinent family hx - Female History Hx Last Menstrual Period: 11/29/2022 Hx Now: (tubal) - Review of Systems Constitutional: No Symptoms Eyes: No Symptoms Ears, Nose, & Throat: No Symptoms Respiratory: No Symptoms Cardiac: No Symptoms Abdominal/Gastrointestinal: No Symptoms Genitourinary Symptoms: No Symptoms Musculoskeletal: No Symptoms Neurological: No Symptoms Psychological: Anxiety, Depression, Suicidal Ideations, Emotional Lability, Mood Changes Endocrine: No Symptoms Hematologic/Lymphatic: No Symptoms Immunological/Allergic: No Symptoms - Nursing Vital Signs Nursing Vital Signs: Initial Vital Signs Temperature 98.3 F 01/03/23 10:56 Pulse Rate 130 H 01/03/23 10:56 Respiratory Rate 20 01/03/23 10:56 Blood Pressure 148/101 01/03/23 10:56 O2 Sat by Pulse Oximetry 97 01/03/23 10:56 Pain Scale Pain Intensity 0 - Physical Exam General Appearance: no apparent distress, alert Eyes, Ears, Nose, Throat Exam: normal ENT inspection Neck Exam: normal inspection, non-tender, supple, full range of motion Respiratory Exam: normal breath sounds, lungs clear Cardiovascular Exam: normal heart sounds, tachycardia Gastrointestinal/Abdominal Exam: soft, normal bowel sounds, No tenderness Extremities Exam: normal inspection, normal range of motion Neurological Exam: alert, 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, oriented x 3, anxious, No normal mood/affect Appearance: appropriate appearance, appropriate insight Behavior/Eye Contact/Speech: alert & cooperative, avoids eye contact, increased rate of speech Thoughts/Hallucinations: no apparent hallucination, flight of ideas Skin Exam: normal color SpO2 Interpretation: normal SpO2: 97 O2 Delivery: Room Air Ordered Tests: Active Orders 24 hr Category Date Time Status ACETAMINOPHEN Stat Lab 01/03/23 11:27 Completed CBC W DIFF Stat Lab 01/03/23 11:27 Completed CMP Stat Lab 01/03/23 11:27 Completed CULTURE,URINE Stat Lab 01/03/23 12:01 Received ETHYL ALCOHOL Stat Lab 01/03/23 11:27 Completed HCG QUALITATIVE, SERUM Stat Lab 01/03/23 11:30 Completed SALICYLATE Stat Lab 01/03/23 11:27 Completed UA W/RFX UR CULTURE Stat Lab 01/03/23 12:01 Completed Urine Triage Profile Stat Lab 01/03/23 12:01 Completed Medication Summary Discontinued Medications Generic Name Dose Route Start Last Admin Trade Name Emilie PRN Reason Stop Dose Admin Clonazepam 2 mg 01/03/23 14:30 01/03/23 14:44 Clonazepam 2 Mg Tablet PO 01/03/23 14:31 2 mg NOW ONE Administration Diphenhydramine HCl 50 mg 01/03/23 14:19 01/03/23 14:37 Diphenhydramine Hcl 25 Mg Capsule PO 01/03/23 14:20 Not Given STAT ONE Diphenhydramine HCl Confirm 01/03/23 14:25 Diphenhydramine Hcl 25 Mg Capsule Administered 01/03/23 14:26 Dose 50 mg .ROUTE .STK-MED ONE Lorazepam 1 mg 01/03/23 14:20 01/03/23 14:37 Lorazepam 1 Mg Tablet PO 01/03/23 14:21 Not Given STAT ONE Lorazepam Confirm 01/03/23 14:25 Lorazepam 1 Mg Tablet Administered 01/03/23 14:26 Dose 1 mg .ROUTE .STK-MED ONE Olanzapine 10 mg 01/03/23 14:18 01/03/23 14:37 Olanzapine 5 Mg Tab PO 01/03/23 14:19 Not Given ONCE STA Olanzapine Confirm 01/03/23 14:25 Olanzapine 5 Mg/Tab Orally Disintegrating Administered 01/03/23 14:26 Dose 5 mg .ROUTE .STK-MED ONE Lab/Rad Data: Laboratory Result Diagrams 01/03/23 11:27 01/03/23 11:27 Laboratory Results 01/03/23 01/03/23 01/03/23 Range/Units 12:01 12:01 11:30 WBC (4.0-10.5) x10^3/uL RBC (4.1-5.4) x10^6/uL Hgb (12.0-16.0) g/dL Hct (35-47) % MCV (78-100) fL MCH (26-32) pg MCHC (32-36) g/dL RDW (11.5-14.0) % Plt Count (150-450) x10^3/uL MPV (7.5-11.0) fL Gran % (36.0-66.0) % Immature Gran % (Auto) (0.00-0.4) % Nucleat RBC Rel Count (0.00-0.1) % Eos # (Auto) (0-0.5) x10^3/uL Immature Gran # (Auto) (0.00-0.03) x10^3u/L Absolute Lymphs (auto) (1.0-4.6) x10^3/uL Absolute Monos (auto) (0.0-1.3) x10^3/uL Absolute Nucleated RBC (0.00-0.01) x10^3u/L Lymphocytes % (24.0-44.0) % Monocytes % (0.0-12.0) % Eosinophils % (0.00-5.0) % Basophils % (0.0-0.4) % Absolute Granulocytes (1.4-6.9) x10^3/uL Basophils # (0-0.4) x10^3/uL Sodium (137-145) mmol/L Potassium (3.5-5.1) mmol/L Chloride (98-107) mmol/L Carbon Dioxide (22-30) mmol/L Anion Gap (5-15) MEQ/L BUN (7-17) mg/dL Creatinine (0.52-1.04) mg/dL Estimated GFR ML/MIN Glucose (74-106) mg/dL Calcium (8.4-10.2) mg/dL Total Bilirubin (0.2-1.3) mg/dL AST (14-36) U/L ALT (0-35) U/L Alkaline Phosphatase (38-126) U/L Serum Total Protein (6.3-8.2) g/dL Albumin (3.5-5.0) g/dL Serum HCG, Qual NEGATIVE (NEGATIVE) Urine Color Yellow (Yellow) Urine Appearance Cloudy A (Clear) Urine pH 5.5 (4.6-8.0) Ur Specific [place] 1.020 (1.005-1.030) Urine Protein Trace A (Negative) Urine Glucose (UA) Negative (Negative) mg/dL Urine Ketones Negative (Negative) Urine Blood Negative (Negative) Urine Nitrite Negative (Negative) Urine Bilirubin Negative (Negative) Urine Urobilinogen 1.0 A (0.2) mg/dL Ur Leukocyte Esterase Small A (Negative) U Hyaline Cast (Auto) NONE SEEN (0-2) /LPF Urine Microscopic RBC 0-2 (0-5) /HPF Urine Microscopic WBC 3-5 (0-5) /HPF Ur Epithelial Cells Moderate A (None Seen) /HPF Urine Bacteria Few A (None Seen) /HPF Urine Culture Reflexed YES (NO) Salicylates (2-20) mg/dL Urine Opiates Level NEGATIVE (NEGATIVE) Ur Methadone NEGATIVE (NEGATIVE) Acetaminophen (10-30) ug/ml Urine Barbiturates NEGATIVE (NEGATIVE) Ur Phencyclidine (PCP) NEGATIVE (NEGATIVE) Urine Amphetamine NEGATIVE (NEGATIVE) U Benzodiazepine Level NEGATIVE (NEGATIVE) Urine Cocaine NEGATIVE (NEGATIVE) Urine Marijuana (THC) POSITIVE (NEGATIVE) Ethyl Alcohol (0-10) mg/dL 01/03/23 01/03/23 Range/Units 11:27 11:27 WBC 6.1 (4.0-10.5) x10^3/uL RBC 4.91 (4.1-5.4) x10^6/uL Hgb 13.1 (12.0-16.0) g/dL Hct 39.0 (35-47) % MCV 79.4 (78-100) fL MCH 26.7 (26-32) pg MCHC 33.6 (32-36) g/dL RDW 13.0 (11.5-14.0) % Plt Count 208 (150-450) x10^3/uL MPV 10.1 (7.5-11.0) fL Gran % 46.9 (36.0-66.0) % Immature Gran % (Auto) 0.0 (0.00-0.4) % Nucleat RBC Rel Count 0.0 (0.00-0.1) % Eos # (Auto) 0.08 (0-0.5) x10^3/uL Immature Gran # (Auto) 0.00 (0.00-0.03) x10^3u/L Absolute Lymphs (auto) 2.75 (1.0-4.6) x10^3/uL Absolute Monos (auto) 0.39 (0.0-1.3) x10^3/uL Absolute Nucleated RBC 0.00 (0.00-0.01) x10^3u/L Lymphocytes % 45.2 H (24.0-44.0) % Monocytes % 6.4 (0.0-12.0) % Eosinophils % 1.3 (0.00-5.0) % Basophils % 0.2 (0.0-0.4) % Absolute Granulocytes 2.85 (1.4-6.9) x10^3/uL Basophils # 0.01 (0-0.4) x10^3/uL Sodium 140 (137-145) mmol/L Potassium 3.4 L (3.5-5.1) mmol/L Chloride 107 (98-107) mmol/L Carbon Dioxide 24 (22-30) mmol/L Anion Gap 12.8 (5-15) MEQ/L BUN 12 (7-17) mg/dL Creatinine 0.32 L (0.52-1.04) mg/dL Estimated GFR > 60.0 ML/MIN Glucose 109 H (74-106) mg/dL Calcium 8.8 (8.4-10.2) mg/dL Total Bilirubin 1.10 (0.2-1.3) mg/dL AST 23 (14-36) U/L ALT 23 (0-35) U/L Alkaline Phosphatase 95 (38-126) U/L Serum Total Protein 7.4 (6.3-8.2) g/dL Albumin 4.1 (3.5-5.0) g/dL Serum HCG, Qual (NEGATIVE) Urine Color (Yellow) Urine Appearance (Clear) Urine pH (4.6-8.0) Ur Specific [place] (1.005-1.030) Urine Protein (Negative) Urine Glucose (UA) (Negative) mg/dL Urine Ketones (Negative) Urine Blood (Negative) Urine Nitrite (Negative) Urine Bilirubin (Negative) Urine Urobilinogen (0.2) mg/dL Ur Leukocyte Esterase (Negative) U Hyaline Cast (Auto) (0-2) /LPF Urine Microscopic RBC (0-5) /HPF Urine Microscopic WBC (0-5) /HPF Ur Epithelial Cells (None Seen) /HPF Urine Bacteria (None Seen) /HPF Urine Culture Reflexed (NO) Salicylates < 1.0 L (2-20) mg/dL Urine Opiates Level (NEGATIVE) Ur Methadone (NEGATIVE) Acetaminophen < 10 L (10-30) ug/ml Urine Barbiturates (NEGATIVE) Ur Phencyclidine (PCP) (NEGATIVE) Urine Amphetamine (NEGATIVE) U Benzodiazepine Level (NEGATIVE) Urine Cocaine (NEGATIVE) Urine Marijuana (THC) (NEGATIVE) Ethyl Alcohol < 10 (0-10) mg/dL - Progress Progress: improved, re-examined Progress Note: 01/03/23 12:19 27 years old female with history of schizoaffective disorder, borderline personality disorder, anxiety, depression, noncompliant with medications presented to the ER with PD after she called 911 to express her thoughts of suicide with a specific plan. Patient reports having thoughts of jumping in front of a car/train or choking herself with milling/polishing operator wire. Patient reports she has lost hope in her life and does not think things will get better in the near future. She does not think it is worth living like this but wants some help to deal with her depression symptoms. Patient is willing to go to treatment facility. Patient is EDed Once patient is medically clear, behavioral health will be consulted for placement. 01/03/23 12:26 01/03/23 15:01 She is medically cleared. Patient was angry, she is EDed and IDed as she was trying to run out of the hospital. She is given Klonopin. She is much calmer now. Patient is excepted for transfer by Dr. Love at [facility]. Plan discussed with patient who understand and agrees with it. Discussed with Dr.: Other Counseled pt/family regarding: lab results, diagnosis, need for follow-up Medical Desision Making - Independent Historian Additional History obtained from: Relative/friend - Discussion of managment Care discussed with:: specialist (Psychiatric Dr. Love) Reviewed:: Test results Agreed on:: Treatment plan, decision to admit Will see patient: in hospital - Diagnostic Testing Diagnostic test were ordered, analyzed, and reviewed by me: Yes - Risk of complications The pt has a high risk of morbidity or mortality based on: Decision regarding hospitilization or escalation of hosp level of care - Departure Departure Disposition: Transfer Clinical Impression: Suicidal ideation Condition: Stable Critical Care Time: No Referrals: MARIVEL DILL [Primary Care Provider] - Follow up/PCP as directed
[2023-01-03 12:21] VITALS: BP 139/95; PULSE 100
[2023-01-03 12:42] LABS: Appearance Cloudy (Clear); Bilirubin Negative (Negative); Blood Negative (Negative); Glucose, Urine Negative (Negative); Hyaline Casts NONE SEEN /LPF (0-2); Ketones Negative (Negative); Leukocyte Esterase Small (Negative); Nitrite Negative (Negative); Ph 5.5 (4.6-8.0); Protein,Urine Dip Trace (Negative); RBC 0-2 /HPF (0-5)
[2023-01-03 13:06] LABS: ADD URINE CULTURE? YES (NO); Bacteria Few /HPF (None Seen); Epithelial Cells Moderate /HPF (None Seen)
[2023-01-03 13:20] LABS: Amphetamine,Urine NEGATIVE (NEGATIVE); Barbiturate,Urine NEGATIVE (NEGATIVE); Benzodiazepine,Urine NEGATIVE (NEGATIVE); Cocaine,Urine NEGATIVE (NEGATIVE); Methadone,Urine NEGATIVE (NEGATIVE); Opiate,Urine NEGATIVE (NEGATIVE); THC,Urine POSITIVE (NEGATIVE)
[2023-01-03 13:28] LABS: PCP,Urine NEGATIVE (NEGATIVE)
[2023-01-03] MEDS ORDERED: zyPREXA 5MG TABLET PO STA (14:18)
[2023-01-03] MEDS ORDERED: BENADRYL 25 MG CAPSULE PO ONE (14:19)
[2023-01-03] MEDS ORDERED: Ativan 1 MG PO ONE (14:20)
[2023-01-03] MEDS ORDERED: BENADRYL 25 MG CAPSULE ONE (14:25)
[2023-01-03] MEDS ORDERED: Zyprexa Zydis 5 MG ONE (14:25)
[2023-01-03] MEDS ORDERED: Ativan 1 MG ONE (14:25)
[2023-01-03] MEDS ORDERED: KLONOPIN PO ONE (14:30)
[2023-01-03 16:04] VITALS: O2SAT 98
== END 2023-01-03 16:21 ==
LOC: ED 10:53
DX: R45.851 Suicidal ideations (principal); Z28.310 Unvaccinated for COVID-19
CPT/HCPCS: 36415; 80053; 80143; 80179; 80307; 81001; 82077; 84703; 85025; 87086; 99285; A9270-GY

== ENCOUNTER 2023-06-08 17:16 | Emergency (ER) | payer SELFPAY ==
[2023-06-08 17:24] VITALS: BP 131/99; PULSE 124; RESP 16; TEMP 99.9; O2SAT 99
--- NOTE | 2023-06-08 17:36 | ERPHSYRPT ---
- History of Present Illness Time Seen by Provider: 06/08/23 17:36 Source: patient Exam Limitations: no limitations Patient Subjective Stated Complaint: pt here for toothache to upper right jaw. Triage Nursing Assessment: pt alert, walked in, resp easy, skin w/d/p, has swelling to right side of face. has multi caries and broken teeth Physician History: This is a 19-year-old white female patient who has right upper molar tooth ache that is been present and worsening over the last several days. Patient states she cannot take pills well and therefore wants suspension or liquids. Patient has not seen a dentist for this infection. Timing/Duration: gradual onset Severity: mild ENT Location: dental Prearrival Treatment: over the counter meds Modifying Factors: Improves With: other (Chewing worsens) Associated Symptoms: jaw pain (Right upper), tooth pain (Right upper molars) Allergies/Adverse Reactions: lactose Adverse Reaction (Intermediate, Verified 06/08/23 17:49) belly issues/diarrhea Hx Tetanus, Diphtheria Vaccination/Date Given: No Hx Influenza Vaccination/Date Given: No Hx Pneumococcal Vaccination/Date Given: No Immunizations Up to Date: Yes Travel Risk - International Travel Have you traveled outside of the country in past 3 weeks: No - Coronavirus Screening Are you exhibiting any of the following symptoms?: No Close contact with a COVID-19 positive Pt in past 14-21 Days: No - Vaccine Status Have you recieved a Covid-19 vaccination: No - Review of Systems Constitutional: No Symptoms Eyes: No Symptoms Ears, Nose, & Throat: Other Respiratory: No Symptoms Cardiac: No Symptoms Abdominal/Gastrointestinal: No Symptoms Genitourinary Symptoms: No Symptoms Musculoskeletal: No Symptoms Skin: No Symptoms Neurological: No Symptoms Psychological: No Symptoms Endocrine: No Symptoms Hematologic/Lymphatic: No Symptoms Immunological/Allergic: No Symptoms All Other Systems: Reviewed and Negative - Past Medical History Pertinent Past Medical History: Yes Neurological History: Migraines ENT History: No Pertinent History Cardiac History: No Pertinent History Respiratory History: No Pertinent History Endocrine Medical History: Hyperthyroidism Musculoskeletal History: No Pertinent History GI Medical History: No Pertinent History History: No Pertinent History Psycho-Social History: Depression Female Reproductive Disorders: No Pertinent History Other Medical History: NOT VACCINATED FOR COVID - Past Surgical History Past Surgical History: Yes Neuro Surgical History: No Pertinent History Cardiac: No Pertinent History Respiratory: No Pertinent History Gastrointestinal: No Pertinent History Genitourinary: No Pertinent History Musculoskeletal: No Pertinent History Female Surgical History: Tubal Ligation, Section Other Surgical History: x2 - Social History Smoking Status: Current every day smoker How long have you smoked: 10 yrs Exposure to second hand smoke: Yes Drug Use: marijuana Patient Lives Alone: No Significant Family History: no pertinent family hx - Female History Hx Last Menstrual Period: apr Hx Now: No - Nursing Vital Signs Nursing Vital Signs: Initial Vital Signs Temperature 99.9 F 06/08/23 17:22 Pulse Rate 124 H 06/08/23 17:22 Respiratory Rate 16 06/08/23 17:22 Blood Pressure 131/99 06/08/23 17:22 O2 Sat by Pulse Oximetry 99 06/08/23 17:22 Pain Scale Pain Intensity 7 - Physical Exam General Appearance: no apparent distress, alert Eye Exam: bilateral eye: normal inspection, PERRL, EOMI Ear Exam: bilateral ear: auricle normal Nasal Exam: normal inspection Throat Exam: moist mucus membranes (With multiple fractured teeth and gingivitis right upper molars. 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 The level of complexity in the workup performed is based on review of the patient's past medical history, review the patient's medication list, review the patient's drug allergy list, history of present illness and physical findings on examination. The workup in this patient does not require any laboratory radiographic studies. We will provide the patient with Keflex suspension. Counseled pt/family regarding: diagnosis, need for follow-up Medical Desision Making - Independent Historian Additional History obtained from: Relative/friend - Diagnostic Testing Diagnostic test were ordered, analyzed, and reviewed by me: No - Risk of complications The pt has a mod risk of morbidity or mortality based on: Need for prescription drug management - Departure Departure Disposition: Home Clinical Impression: Dental caries, Pain, dental Condition: Stable Critical Care Time: No Additional Instructions: Use Tylenol and ibuprofen for pain control. Call a dentist on 06/10/2023, to make arrangements for further evaluation, management and definitive care. Prescriptions: Cephalexin 250 mg/5 ml Susp [Keflex 250 mg/5 ml Susp] 10 mg PO TID #210 ml
[2023-06-08] MEDS ORDERED: KEFLEX 250 MG/5 ML SUSP PO ONE (17:55)
[2023-06-08] MEDS ORDERED: KEFLEX 250 MG/5 ML SUSP ONE (18:02)
== END 2023-06-08 18:14 | disposition home or self-care (01) ==
LOC: ED 17:16
DX: K02.9 Dental caries, unspecified (principal); K08.89 Other specified disorders of teeth and supporting structures; Z28.310 Unvaccinated for COVID-19; Z72.0 Tobacco use
CPT/HCPCS: 99281; A9270-GY